=== PATIENT | male | born 1985 ===

== ENCOUNTER 2022-05-11 07:11 | Day surgery (SDC) | payer BC ==
[~2022-05-11 07:11] MED LIST: EPINEPHrine 1 MG/ML 30 ML MDV IRR SCH
[2022-05-11] MEDS ORDERED: Bupivacaine 0.25% 10 ML SDV ONE (07:15)
[2022-05-11] MEDS ORDERED: Lactated Ringers 1,000 ML IV SCH (07:15)
[2022-05-11] MEDS ORDERED: Albuterol 0.083% 2.5 MG/3 ML Neb Soln NEB SCH (07:15)
[2022-05-11] MEDS ORDERED: Lidocaine 1%/Sod Bicarbonate in NS 8.4% 1 ML Syringe IDERM PRN (07:15)
[2022-05-11] MEDS ORDERED: fentaNYL 100 MCG/2 ML SDV ONE (07:19)
[2022-05-11] MEDS ORDERED: Ondansetron 4 MG/2 ML SDV ONE (07:20)
[2022-05-11] MEDS ORDERED: ceFAZolin 2 GM Vial ONE (07:20)
[2022-05-11] MEDS ORDERED: Dexamethasone 4 MG/ML 5 ML MDV ONE (07:20)
[2022-05-11] MEDS ORDERED: Propofol 200 MG/20 ML SDV ONE (07:20)
[2022-05-11] MEDS ORDERED: Lidocaine 1% 5 ML VIAL ONE (07:20)
[2022-05-11] MEDS ORDERED: Midazolam 1 MG/ML 2 ML SDV ONE (07:20)
[2022-05-11] MEDS ORDERED: Ketorolac 30 MG/ML SDV ONE (07:20)
[2022-05-11] MEDS ORDERED: HYDROmorphone 0.5 MG/0.5 ML Syringe ONE ×2 (08:40→08:43)
[2022-05-11] MEDS ORDERED: Lactated Ringers 1,000 ML ONE (08:44)
[2022-05-11] MEDS ORDERED: Sodium Chloride 0.9% 10 ML Syringe FLUSH SCH (09:00)
[2022-05-11] MEDS ORDERED: Acetaminophen/HYDROcodone 325-5 MG Tab PO PRN (09:12)
[2022-05-11] MEDS ORDERED: fentaNYL 100 MCG/2 ML SDV IVPUSH PRN (09:47)
[2022-05-11] MEDS ORDERED: Ondansetron 4 MG/2 ML SDV IVPUSH PRN (09:47)
[2022-05-11] MEDS ORDERED: HYDROmorphone 0.5 MG/0.5 ML Syringe IVPUSH PRN (09:47)
== END 2022-05-11 11:31 | disposition home or self-care (01) ==
LOC: JD.SDS 07:11
PROVIDERS: ATTEND Orthopaedic Surgery
DX: S83.242A Other tear of medial meniscus, current injury, left knee, initial encounter (principal); M67.52 Plica syndrome, left knee; F17.210 Nicotine dependence, cigarettes, uncomplicated; Z88.0 Allergy status to penicillin; Z91.048 Other nonmedicinal substance allergy status
CPT/HCPCS: 29881; A9270; J0171; J0690; J1100; J1170; J1885; J2250; J2405; J2704; J3010; J3490; J7120; 01400; J7620-GY